=== PATIENT | male | born 1995 | race Caucasian/White ===

== ENCOUNTER 2023-09-26 13:49 | Emergency (ER) | payer OTHER ==
[~2023-09-26] VITALS: Ht 170.2 cm; Wt 68.2 kg
[2023-09-26 14:37] LABS: BASO % 0.2 % (0.0-1.0); HEMATOCRIT 25.6 % (42.0-52.0); HEMOGLOBIN 8.8 g/dl (13.5-17.5); LYMPH # 1.2 10^3/uL (1.5-5.0); MEAN CORPUSCULAR HEMOGLOBIN 30.7 pg (27.0-33.0); MEAN CORPUSCULAR HGB CONC 34.4 g/dl (32.0-36.5); MEAN CORPUSCULAR VOLUME 89.2 fl (80.0-96.0); MONO # 1.6 10^3/uL (0.0-0.8); MONO % 8.3 % (2.0-8.0); NEUTROPHILS # 16.6 10^3/uL (1.5-8.5); NEUTROPHILS % 84.5 % (36.0-66.0); PLATELET COUNT, AUTOMATED 143 10^3/uL (150-450); RED BLOOD COUNT 2.87 10^6/uL (4.30-6.10); WHITE BLOOD COUNT 19.7 10^3/uL (4.0-10.0)
[2023-09-26 14:48] LABS: INR 1.3; PARTIAL THROMBOPLASTIN TIME 21.5 SECONDS (24.8-34.2); PROTHROMBIN TIME 15.7 SECONDS (12.5-14.5)
[2023-09-26 14:59] LABS: LIPASE 21 U/L (12-53)
[2023-09-26 15:01] LABS: AMYLASE 29 U/L (30-118)
[2023-09-26] MEDS: cefTRIAXone SOD 2 GM in D5W MINI-BAG PLUS 50 ML IV ONE (15:32)
[2023-09-26] MEDS: NS 2,050 ML in IV 1 EA IV ONE (15:33)
[2023-09-26 15:34] LABS: HIV 1&2 SCREEN NEGATIVE (NEGATIVE)
[2023-09-26 15:53] LABS: ALBUMIN 3.6 G/DL (3.2-5.2); ALKALINE PHOSPHATASE 124 U/L (46-116); ALT/SGPT 1591 U/L (7.0-40); AST/SGOT 1302 U/L (<34); BILIRUBIN,DIRECT 0.6 MG/DL (<0.4); BILIRUBIN,TOTAL 1.6 MG/DL (0.3-1.2); BLOOD UREA NITROGEN 42 MG/DL (9-23); CALCIUM LEVEL 8.7 MG/DL (8.5-10.1); CARBON DIOXIDE LEVEL 22 MMOL/L (20-31); CHLORIDE LEVEL 100 MMOL/L (98-107); GLOMERULAR FILTRATION RATE 51.7 (>60); GLUCOSE, FASTING 149 MG/DL (60-100); POTASSIUM SERUM 4.3 MMOL/L (3.5-5.1); SODIUM LEVEL 134 MMOL/L (136-145); TOTAL PROTEIN 5.9 G/DL (5.7-8.2)
[2023-09-26] MEDS ORDERED: ISOVUE-370 76% 100ML VIAL As Ordered ONE (16:00)
[2023-09-26 16:35] LABS: HEPATITIS B SURFACE ANTIGEN NEGATIVE (NEGATIVE)
[2023-09-26] MEDS ORDERED: SUBO8MIS SL (16:51)
[2023-09-26 16:54] LABS: HEPATITIS C VIRUS ABY INDEX < 0.02 INDEX (<0.8)
[2023-09-26 16:55] LABS: HEPATITIS B CORE ANTIBODY IGM NEGATIVE (NEGATIVE)
[2023-09-26 17:46] VITALS: BP 137/84; TEMP 100; O2SAT 100
[2023-09-26 19:00] LABS: ETHYL ALCOHOL (ETHANOL) < 0.003 % (0.000-0.010)
== END 2023-09-26 17:54 | disposition short-term general hospital (02) ==
LOC: M ED 13:49 → EDBD 13:49 → M ED 17:54
DX: S36.116A Major laceration of liver, initial encounter (principal); R18.8 Other ascites; Y04.8XXA Assault by other bodily force, initial encounter; F17.200 Nicotine dependence, unspecified, uncomplicated; Z79.899 Other long term (current) drug therapy
CPT/HCPCS: 70450; 71045; 71260; 72072; 72110; 72125; 73030; 74177; 80048; 80074; 80076; 80143; 82077; 82150; 83605; 83690; 85025; 85610; 85730; 86850; 86900; 86901; 87389; 93041; 94760; 96361; 96365; 99285; J0696; Q9967